=== PATIENT | female | born 1980 | race American Indian/Alaskan Native ===

== ENCOUNTER 2019-04-22 19:33 | Inpatient (IN) | payer OTHER, SELFPAY ==
[2019-04-22] MEDS ORDERED: SODIUM CHLORIDE 0.9% 1000 ML 1,000 ML IV ONE ×2 (20:29)
[2019-04-22] MEDS ORDERED: SODIUM CHLORIDE 0.9% 1000 ML 2,000 ML ONE (20:30)
--- NOTE | 2019-04-22 20:41 | Emergency Department Report ---
HPI - General Chief Complaint: Abdominal Pain Time Seen by Provider: 04/22/19 20:27 - HPI HPI: Room 1 The patient is a 39-year-old female presented with a chief complaint of abdominal pain. The patient suggested additional cramping in the right lower q uadrant and thought it was just her cycle, and on. Patient states this morning at 11:00 by lower quadrant pain became severe causing her to double over when standing. Patient states the pain then spread to bilateral lower quadrant and suprapubic region. Patient denies vaginal bleeding or vaginal discharge. Patient denies burning with urination but states whenever she urinates she feels as though she is on push something out and this causes pain in the abdomen. Patient denies hematuria. Patient denies history of fever. Patient states she use vneb-hci-apcrmal pain medication but has not helped. The patient's LMP was 03/29/2019 she states this is slightly later than normal Location: [See above] Duration: [See above] Quality: [See above] Severity: [See above] Timing: [See above] Context: [See above] Modifying factors: [See above] Associated signs and symptoms: [see above] ED Past Medical Hx - Past Medical History Previous Medical History?: No - Surgical History Past Surgical History?: Yes Additional Surgical History: with tubal ligation - Family History Family history: no significant - Social History Smoking Status: Never Smoker Substance Use Type: None (denies illicit drug use), Alcohol (occasional) - Medications Home Medications: Home Medications Medication Instructions Recorded Confirmed Last Taken Type metroNIDAZOLE [Flagyl] 500 mg PO BID #14 tablet 05/04/13 Unknown Rx metroNIDAZOLE [Flagyl] 500 mg PO BID #14 tablet 09/29/13 Unknown Rx ED Review of Systems ROS: Stated complaint: SYNCOPE/ABD/VAGINAL PAIN Other details as noted in HPI Constitutional: denies: fever Eyes: denies: eye pain ENT: denies: throat pain Respiratory: no symptoms reported Cardiovascular: chest pain Endocrine: no symptoms reported Gastrointestinal: abdominal pain. denies: nausea, vomiting, diarrhea Genitourinary: abnormal menses. denies: dysuria, hematuria, discharge Musculoskeletal: denies: back pain Neurological: denies: headache Physical Exam - Physical Exam Vital Signs: Vital Signs 04/22/19 20:23 Temperature 97.6 F Pulse Rate 83 Respiratory 24 Rate Blood Pressure 87/57 O2 Sat by Pulse 100 Oximetry Physical Exam: GENERAL: The patient is well-developed well-nourished female lying on stretcher not appearing to be in acute distress. [] HEENT: Normocephalic. Atraumatic. Extraocular motions are intact. Patient has moist mucous membranes. NECK: Supple. Trachea midline CHEST/LUNGS: Clear to auscultation. There is no respiratory distress noted. HEART/CARDIOVASCULAR: Regular. There is no tachycardia. There is no gallop rub or murmur. ABDOMEN: Abdomen is soft, with diffuse tenderness to palpation. Patient has normal bowel sounds. There is no abdominal distention. SKIN: There is no rash. There is no edema. There is no diaphoresis. NEURO: The patient is awake, alert, and oriented. The patient is cooperative. The patient has normal speech MUSCULOSKELETAL: There is no evidence of acute injury. Pelvic: PT REFUSED ED Course Vital Signs 04/22/19 20:23 Temperature 97.6 F Pulse Rate 83 Respiratory 24 Rate Blood Pressure 87/57 O2 Sat by Pulse 100 Oximetry - Consultations Consultation #1: 04/23/19 01:13 OB paged 04/23/19 01:18 Case d/w Dr Robby Doll. Will admit ED Medical Decision Making - Lab Data Result diagrams: 04/22/19 20:42 04/22/19 20:42 - EKG Data -: EKG Interpreted by Ri EKG shows normal: sinus rhythm Rate: normal - EKG Data When compared to previous EKG there are: previous EKG unavailable Interpretation: other (no ischemic changes seen) - Radiology Data Radiology results: report reviewed (CT abd/pel, Pelvic u/s), image reviewed (CT abd/pel, Pelvic u/s) [facility] [address] [place] [address] Ultrasound Report Signed Patient: DESTINY BLANTON MR#: [id number] : 1980 Acct:[id number] Age/Sex: 39 / F ADM Date: 04/22/19 Loc: ED Attending Dr: Ordering Physician: YULISSA DIXON MD Date of Service: 04/22/19 Procedure(s): US transvaginal Accession Number(s): [id number] cc: YULISSA DIXON MD ULTRASOUND PELVIS INDICATION / CLINICAL INFORMATION: pelvic pain, leukocytosis. TECHNIQUE: Transabdominal and Transvaginal. Duplex Color Doppler used: Yes. COMPARISON: CT dated 04/22/19 FINDINGS: UTERUS: Present. - Appearance (if present): No significant abnormality. - Size in cm (if present): 9.0 x 4.7 x 5.0. - Endometrial Complex (if present): No significant abnormality.. Thickness in cm (if measured) = 0.7 - Mass lesions: Small 1.7 cm fibroid in the uterine fundus. - Additional findings: None. RIGHT ADNEXA: Complex right adnexal collection. Right ovary not definitely visualized. Normal color Doppler blood flow. LEFT ADNEXA: No significant ovarian cyst or mass. Normal color Doppler blood flow. URINARY BLADDER: No significant abnormality. FREE FLUID: Moderate to large amount of complex, echogenic fluid in the right adnexa and cul-de-sac of the pelvis corresponding to the CT findings. ADDITIONAL FINDINGS: None. IMPRESSION: 1. Moderate to large amount of complex fluid in the right adnexa and cul-de-sac corresponding to CT findings. This may represent hemorrhagic fluid. Ruptured hemorrhagic ovarian cyst would be one diagnostic consideration. Signer Name: Mine Collins MD Signed: 04/23/2019 1:00 AM Workstation Name: [id number] Transcribed By: DT Dictated By: Doroteo Collins MD Electronically Authenticated By: Doroteo Collins MD Signed Date/Time: 04/23/19 0100 DD/ 0056 TD/TT: [facility] [address] [place] [address] Cat Scan Report Signed Patient: DESTINY BLANTON MR#: [id number] : 1980 Acct:[id number] Age/Sex: 39 / F ADM Date: 04/22/19 Loc: ED Attending Dr: Ordering Physician: YULISSA DIXON MD Date of Service: 04/22/19 Procedure(s): CT abdomen pelvis w con Accession Number(s): [id number] cc: YULISSA DIXON MD CT ABDOMEN AND PELVIS WITH CONTRAST INDICATION / CLINICAL INFORMATION: lower abdominal pain, leukocytosis. Serum test is negative. TECHNIQUE: Axial CT images were obtained through the abdomen and pelvis after 100 mL Omnipaque [address] scans at this location are performed using CT dose reduction for ALARA by means of automated exposure control. COMPARISON: None available. FINDINGS: LOWER CHEST: No significant abnormality. LIVER: No significant abnormality. GALLBLADDER: Small layering gallstones without gallbladder inflammation. BILE DUCTS: No significant abnormality. PANCREAS: No significant abnormality. SPLEEN: No significant abnormality. ADRENALS: No significant abnormality. RIGHT KIDNEY and URETER: No significant abnormality. LEFT KIDNEY and URETER: No significant abnormality. STOMACH and SMALL BOWEL: There are fluid-filled, nondilated loops of small bowel. COLON: There is fluid throughout the colon without obstruction. APPENDIX: No significant abnormality. PERITONEUM: There is a moderate amount of hemorrhagic fluid within the pelvis primarily in the cul-de-sac. There is a small to moderate amount of fluid in the upper abdomen around the liver and spleen. No free air. No fluid collection. LYMPH NODES: No significant adenopathy. AORTA and ARTERIES: No significant abnormality. IVC and VEINS: No significant abnormality. URINARY BLADDER: No significant abnormality. REPRODUCTIVE ORGANS: Uterus shows no significant abnormality. Adnexa are not well seen given the moderate amount of hemorrhagic fluid in the pelvis. ADDITIONAL FINDINGS: None. SKELETAL SYSTEM: No significant abnormality. IMPRESSION: 1. Moderate amount of hemorrhagic fluid in the pelvis with fluid extending into the upper abdomen. Given that the serum test is negative, ruptured ectopic is unlikely. A ruptured hemorrhagic ovarian cyst could have this appearance. Gynecologic consultation may be helpful. 2. Normal appendix. COMMUNICATION: Time of Communication (COTTON ACREAGE MEASURER/CDT): 10:18 PM Licensed Practitioner Receiving Report: Dr. Dixon in the ED Signer Name: Mine Collins MD Signed: 04/22/2019 11:21 PM Workstation Name: [id number] Transcribed By: DT Dictated By: Doroteo Collins MD Electronically Authenticated By: Doroteo Collins MD Signed Date/Time: 04/22/19 4601 DD/ 2310 TD/TT: - Differential Diagnosis ectopic , appendicitis, cystitis, tubo-ovarian abscess Critical care attestation.: If time is entered above; I have spent that time in minutes in the direct care of this critically ill patient, excluding procedure time. ED Disposition Clinical Impression: Acute abdominal pain, Pelvic fluid collection, Leukocytosis, Hypotension Disposition: - OP ADMIT IP TO THIS HOSP Is pt being admited?: Yes Does the pt Need Aspirin: No Condition: Serious Instructions: Abdominal Pain (ED) Referrals: PRIMARY CARE, [Primary Care Provider] - 3-5 Days Time of Disposition: 01:19 (Dr Robby Doll notified)
[2019-04-22] MEDS: ONDANSETRON 4 MG/2 ML INJ IV ONE ×2 (20:46→20:54)
[2019-04-22] MEDS: fentaNYL 100 MCG/2 ML INJ IV ONE ×2 (20:46→20:53)
[2019-04-22 21:19] LABS: Hemoglobin 10.7 gm/dl (10.1-14.3); Mean Corpuscular HGB Conc 32 % (30-34); Mean Corpuscular Volume 85 fl (79-97); Platelet Count 220 K/mm3 (140-440); Red Cell Distribution Width 13.7 % (13.2-15.2)
[2019-04-22 21:23] LABS: INR 1.2 (0.87-1.13)
[2019-04-22 21:24] LABS: Partial Thromboplastin Time 22.9 Sec. (24.2-36.6)
[2019-04-22] MEDS ORDERED: PIPERACIL/TAZOBACTA 4.5/NS 100 4.5 GM/100 ML VIAL IV ONE (21:27)
[2019-04-22 21:58] LABS: Alanine Aminotransferase 9 units/L (7-56); Albumin 3.2 g/dL (3.9-5); BUN/Creatinine Ratio 11; Blood Urea Nitrogen 8 mg/dL (7-17); Calcium 7.5 mg/dL (8.4-10.2); Hemolysis Index 37
[2019-04-22 22:05] LABS: Creatine Kinase MB < 1.0 ng/mL (0.0-4.0)
[2019-04-22 22:10] LABS: HCG,Quantitative < 2 mIU/mL (0-4)
--- NOTE | 2019-04-22 23:26 | Cat Scan Report ---
CT ABDOMEN AND PELVIS WITH CONTRAST INDICATION / CLINICAL INFORMATION: lower abdominal pain, leukocytosis. Serum test is negative. TECHNIQUE: Axial CT images were obtained through the abdomen and pelvis after 100 mL Omnipaque [address] scans at this location are performed using CT dose reduction for ALARA by means of automated exposure control. COMPARISON: None available. FINDINGS: LOWER CHEST: No significant abnormality. LIVER: No significant abnormality. GALLBLADDER: Small layering gallstones without gallbladder inflammation. BILE DUCTS: No significant abnormality. PANCREAS: No significant abnormality. SPLEEN: No significant abnormality. ADRENALS: No significant abnormality. RIGHT KIDNEY and URETER: No significant abnormality. LEFT KIDNEY and URETER: No significant abnormality. STOMACH and SMALL BOWEL: There are fluid-filled, nondilated loops of small bowel. COLON: There is fluid throughout the colon without obstruction. APPENDIX: No significant abnormality. PERITONEUM: There is a moderate amount of hemorrhagic fluid within the pelvis primarily in the cul-de -sac. There is a small to moderate amount of fluid in the upper abdomen around the liver and spleen. No free air. No fluid collection. LYMPH NODES: No significant adenopathy. AORTA and ARTERIES: No significant abnormality. IVC and VEINS: No significant abnormality. URINARY BLADDER: No significant abnormality. REPRODUCTIVE ORGANS: Uterus shows no significant abnormality. Adnexa are not well seen given the mode rate amount of hemorrhagic fluid in the pelvis. ADDITIONAL FINDINGS: None. SKELETAL SYSTEM: No significant abnormality. IMPRESSION: 1. Moderate amount of hemorrhagic fluid in the pelvis with fluid extending into the upper abdomen. Gi do that the serum test is negative, ruptured ectopic is unlikely. A ruptured hem orrhagic ovarian cyst could have this appearance. Gynecologic consultation may be helpful. 2. Normal appendix. COMMUNICATION: Time of Communication (SPECIAL FORCES COMMUNICATIONS SERGEANT/CDT): 10:18 PM Licensed Practitioner Receiving Report: Dr. Ozuna in the ED Signer Name: Mine Collins MD Signed: 04/22/2019 11:21 PM Workstation Name: [email or web address]
[2019-04-22 23:28] LABS: Basophils % (Manual) 0 % (0.0-1.8); Eosinophils % (Manual) 0 % (0.0-4.3); Total Cells Counted 100
[2019-04-22 23:29] LABS: Platelet Estimate Consistent w Auto; RBC Morphology Normal
[2019-04-22 23:34] LABS: Bilirubin,Urine NEG (Negative); Blood,Urine NEG (Negative); Color,Urine Straw (Yellow); Mucus,Urine FEW /HPF; Protein,Urine <15 mg/dL mg/dL (Negative); RBC,Urine < 1.0 /HPF (0.0-6.0); Urobilinogen,Urine < 2.0 mg/dL (<2.0); WBC,Urine < 1.0 /HPF (0.0-6.0)
--- NOTE | 2019-04-23 01:04 | Ultrasound Report ---
ULTRASOUND PELVIS INDICATION / CLINICAL INFORMATION: pelvic pain, leukocytosis. TECHNIQUE: Transabdominal and Transvaginal. Duplex Color Doppler used: Yes. COMPARISON: CT dated 04/22/19 FINDINGS: UTERUS: Present. - Appearance (if present): No significant abnormality. - Size in cm (if present): 9.0 x 4.7 x 5.0. - Endometrial Complex (if present): No significant abnormality.. Thickness in cm (if measured) = 0.7 - Mass lesions: Small 1.7 cm fibroid in the uterine fundus. - Additional findings: None. RIGHT ADNEXA: Complex right adnexal collection. Right ovary not definitely visualized. Normal color D oppler blood flow. LEFT ADNEXA: No significant ovarian cyst or mass. Normal color Doppler blood flow. URINARY BLADDER: No significant abnormality. FREE FLUID: Moderate to large amount of complex, echogenic fluid in the right adnexa and cul-de-sac o f the pelvis corresponding to the CT findings. ADDITIONAL FINDINGS: None. IMPRESSION: 1. Moderate to large amount of complex fluid in the right adnexa and cul-de-sac corresponding to CT f indings. This may represent hemorrhagic fluid. Ruptured hemorrhagic ovarian cyst would be one diagnos tic consideration. Signer Name: Mine Collins MD Signed: 04/23/2019 1:00 AM Workstation Name: [email or web address]
[2019-04-23] MEDS ORDERED: LACTATED RINGERS 1,000 ML ONE ×2 (09:00→13:09)
--- NOTE | 2019-04-23 09:07 | Short Stay Summary ---
Short Stay Documentation Date of service: 04/23/19 Narrative H&P: Pt is a 39yo BF LMP 03/29/19 presents to [facility] ER complaining of abdominal pains. The patient suggested additional cramping in the right lower quadrant and thought it was just her cycle, but the lower quadrant pain became severe causing her to double over when standing. She states the pain then spread to bilateral lower quadrant and suprapubic region. She denies vaginal bleeding, vaginal discharge, burning with urination but states whenever she urinates she feels as though she wants to push something out, and this causes pain in the abdomen. She denies hematuria, history of fever or chills, and states [id number] pain medication but has not helped. A CT Scan showed a moderate amount of fluid collection in the abdomen - confirmed with pelvic u/s, and was suggestive of a ruptured hemorrhagic ovarian cyst. She will therefore be admitted for a Laparoscopic ovarian cystectomy. - History Principal diagnosis: 1. Abdominal pain 2. Ruptured ovarian cyst H&P: obtained from office Past Medical History: No medical history Past Surgical History: , Other (BTL) Social history: no significant social history, single - Allergies and Medications Current Medications: Allergies No Known Allergies Allergy (Verified 05/04/13 02:47) Home Medications Medication Instructions Recorded Confirmed Last Taken Type metroNIDAZOLE [Flagyl] 500 mg PO BID #14 tablet 05/04/13 Unknown Rx metroNIDAZOLE [Flagyl] 500 mg PO BID #14 tablet 09/29/13 Unknown Rx - Physical exam General appearance: mild distress Integumentary: no rash HEENT: Atraumatic Lungs: Clear to auscultation Breasts: deferred Heart: Regular rate Gastrointestinal: tenderness Female Genitourinary: deferred Rectal Exam: deferred Extremities: no ischemia, No edema Neurological: Normal speech - Brief post op/procedure progress note Date of procedure: 04/23/19 Pre-op diagnosis: 1. Abdominal pain 2. Ruptured right ovarian cyst 3. Hematoperitoneum Post-op diagnosis: same Procedure: 1. Laproscopic right ovarian cystectomy 2. Evacuation of hematoperitoneum Anesthesia: GETA Findings: Approximately 700mls of hematoperitoneum obscuring the pelvic organs. A normal uterus with normal tubes showing evidence of previous tubal ligation bilaterally. A normal left ovary and a large cystic bleeding right ovarian cyst. A normal appendix. Surgeon: VIKTORIYA BARRAGAN Estimated blood loss: other (700mls of hematoperitoneum) Pathology: list (right ovarian cyst) Specimen disposition: to lab Condition: stable - Hospital course Hospital course: Unremarkable. - Disposition Condition at discharge: Good Disposition: DC-01 TO HOME OR SELFCARE - Discharge Diagnoses (1) Ovarian cyst rupture Status: Resolved (2) Hemoperitoneum Status: Resolved Short Stay Discharge Plan Activity: no restrictions Diet: regular Wound: open to air, keep clean and dry Follow up with: PRIMARY CAREMD [Primary Care Provider] - 3-5 Days VIKTORIYA BARRAGAN MD [Staff Physician] - 7 Days Forms: Work/School Excuse Out Patient Prescriptions: Ferrous Sulfate [Feosol 325 MG tab] 325 mg PO BID #60 tablet HYDROcodone/APAP 5-325 [[place] 5-325 mg TAB] 1 each PO Q4H PRN #20 tablet PRN Reason: Pain, Moderate (4-6)
[2019-04-23] MEDS ORDERED: LACTATED RINGERS 1,000 ML IV SCH (09:30)
[2019-04-23] MEDS ORDERED: ceFAZolin/Water 2 GM/20 ML 2 GM/20 ML SYRINGE IV NR (10:00)
--- NOTE | 2019-04-23 10:18 | Anesthesia Consultation ---
Anesthesia Consult and Med Hx Date of service: 04/23/19 - Airway Anesthetic Teeth Evaluation: Good ROM Head & Neck: Adequate Mental/Hyoid Distance: Adequate Mallampati Class: Class II Intubation Access Assessment: Probably Good - Pulmonary Exam CTA: Yes - Cardiac Exam Cardiac Exam: RRR - Pre-Operative Health Status ASA Pre-Surgery Classification: ASA1 Proposed Anesthetic Plan: General - Pulmonary Hx Smoking: No Hx Respiratory Symptoms: Yes (URI 2 wks ago; resoolved) - Cardiovascular System Hx Hypertension: No Hx Heart Attack/AMI: No - Central Nervous System Hx Seizures: No CVA: No - Gastrointestinal Hx Gastroesophageal Reflux Disease: No - Endocrine Hx Renal Disease: No Hx Liver Disease: No Hx Insulin Dependent Diabetes: No Hx Non-Insulin Dependent Diabetes: No Hx Thyroid Disease: No - Hematic Hx Anemia: Yes - Other Systems Hx Obesity: No - Additional Comments Anesthesia Medical History Comments: No prior GA. No FHx anesthetic complications.
--- NOTE | 2019-04-23 10:18 | Anesthesia Day of Surgery ---
Anesthesia Day of Surgery - Day of Surgery Patient Examined: Yes Patient H&P Reviewed: Yes Patient is NPO: Yes
[2019-04-23] MEDS ORDERED: SCOPOLAMINE TRANSDERMAL PATCH 72 HR TD NR (10:30)
[2019-04-23] MEDS ORDERED: HYDROmorphone 1 MG/1 ML INJ IV PRN (10:30)
[2019-04-23] MEDS ORDERED: MIDAZOLAM 2 MG/2 ML INJ IV NR (11:00)
[2019-04-23] MEDS ORDERED: KETOROLAC 30 MG/1 ML INJ ONE ×2 (11:00→13:00)
[2019-04-23] MEDS ORDERED: ROCURONIUM 50 MG/5 ML INJ IV ONE (11:18)
[2019-04-23] MEDS ORDERED: MIDAZOLAM 2 MG/2 ML INJ ONE (11:18)
[2019-04-23] MEDS ORDERED: LIDOCAINE MPF (2%) 20 MG/1 ML VIAL 5 ML ONE (11:18)
[2019-04-23] MEDS ORDERED: fentaNYL 100 MCG/2 ML INJ ONE ×2 (11:19)
[2019-04-23] MEDS ORDERED: PROPOFOL 200 MG/20 ML VIAL IV ONE (11:19)
[2019-04-23] MEDS ORDERED: BUPIVACAINE/PF (0.5%) 5 MG/1 ML 30 ML VIAL INFILTRATI ONE ×2 (11:32→13:02)
[2019-04-23] MEDS ORDERED: ONDANSETRON 4 MG/2 ML INJ ONE (12:09)
[2019-04-23] MEDS ORDERED: dexAMETHasone 20 MG/5 ML VIAL ONE (12:09)
[2019-04-23] MEDS ORDERED: METOCLOPRAMIDE 10 MG/2 ML INJ ONE (12:09)
[2019-04-23] MEDS ORDERED: SODIUM CHLORIDE 0.9% IRR 1,000 ML BOTTLE IR ONE (12:13)
[2019-04-23] MEDS ORDERED: SODIUM CHLORIDE 0.9% IRRIG SOLN 2000 ML IR ONE (12:13)
[2019-04-23] MEDS ORDERED: NEOSTIGMINE 10MG/10 ML INJ MDV ONE (12:59)
[2019-04-23] MEDS ORDERED: GLYCOPYRROLATE 0.4 MG/2 ML INJ ONE (13:00)
--- NOTE | 2019-04-23 13:04 | Operative Report ---
Operative Report Operative Report: Date of procedure: 04/23/2019 Pre-operative diagnosis: 1. Abdominal pain 2. Ruptured right ovarian cyst 3. Hematoperitoneum Post-operative diagnosis: Same Procedure name(s): 1. Laparoscopic right ovarian cystectomy 2. Evacuation of hematoperitoneum Surgeon: Dr. Genaro Doll Content Checker: None Anesthesia: Gen. endotracheal intubation EBL: 700mls of hematoperitoneum Findings: Approximately 700mls of hematoperitoneum initially obscuring the pelvic organs. A normal uterus with normal tubes showing evidence of previous tubal ligation bilaterally. A normal left ovary and a large cystic bleeding right ovarian cyst. Normal appendix. Procedure: After the patient was correctly identified, she was prepped and draped in the usual sterile fashion and placed in the dorsolithotomy position. Next the bladder was emptied using a Castillo catheter, and the speculum was placed in the vaginal vault. The anterior lip of the cervix was grasped using single- tooth tenaculum, and the uterine manipulator was then placed. The tenaculum and speculum were then removed. Attention was then turned to the abdomen where a periumbilical incision was made using the skin knife, and the Optiview trocar was inserted under direct visualization. Immediately there was noted to be a large amount of blood in the pelvis, obscuring the pelvic organs. After adequate amount of abdominal insufflation, a suprapubic incision was made through which a 5mm trochar and suction phd internship was placed to remove approximately 700mls of blood and blood clots. Next visualization of the pelvic organs found the uterus to be normal, with a normal left ovary and a large cystic bleeding right ovarian cyst. A right lateral incision was made through which a 5 mm trochar was placed in order to aid in manipulation of the pelvic organs. The right ovarian cyst was excised using the tripolar cautery, and excellent hemostasis was achieved. The cyst was removed and sent to pathology. Copious amounts of irrigation was then performed using 3 liters of saline, and the Tisseel Sealant was sprayed across this ovarian cystectomy site. At this point the procedure was considered complete. All instruments were removed from the abdomen. The abdomen was deflated, and a periumbilical incision was closed using 0 Vicryl suture in a uqmabg-[id number]-acqua configuration of the fascia followed by 4 Monocryl suture in a sub-cuticular fashion on the skin. The suprapubic and right lateral incisions were closed in similar fashion. Each incision was infiltrated using 0.5% Marcaine Solution. The uterine manipulator was removed. The patient tolerated the procedure well and was transferred to recovery in stable condition.
[2019-04-23] MEDS ORDERED: ONDANSETRON 4 MG/2 ML INJ IV PRN (14:03)
[2019-04-23] MEDS ORDERED: MAGNESIUM HYDROXIDE (MOM) ORAL LIQD UDC PO PRN (14:03)
[2019-04-23] MEDS ORDERED: HYDROcodone/ACETAMINOPHEN 5-325 MG TAB PO PRN (14:03)
[2019-04-23] MEDS ORDERED: oxyCODONE /ACETAMINOPHEN 5-325MG TAB PO PRN (14:03)
[2019-04-23] MEDS ORDERED: ACETAMINOPHEN 325 MG TAB PO PRN (14:03)
[2019-04-23 14:51] LABS: Hematocrit 28.6 % (30.3-42.9); Hemoglobin 9.4 gm/dl (10.1-14.3)
[2019-04-23] MEDS: D5W/LACTATED RINGERS 1,000 ML IV SCH (18:02)
[2019-04-23] MEDS: ceFAZolin/NS 1 GM/50 ML 1 GM/50 ML BAG IV SCH (22:30)
[2019-04-23] MEDS: KETOROLAC 30 MG/1 ML INJ IV SCH (23:44)
[2019-04-24] MEDS: D5W/LACTATED RINGERS 1,000 ML IV SCH (01:55)
[2019-04-24 06:28] LABS: Hematocrit 22.5 % (30.3-42.9); Hemoglobin 7.6 gm/dl (10.1-14.3); Mean Corpuscular HGB Conc 34 % (30-34); Mean Corpuscular Volume 83 fl (79-97); Platelet Count 172 K/mm3 (140-440); Red Blood Count 2.71 M/mm3 (3.65-5.03); Red Cell Distribution Width 13.7 % (13.2-15.2)
[2019-04-24] MEDS: ceFAZolin/NS 1 GM/50 ML 1 GM/50 ML BAG IV SCH (08:15)
[2019-04-24] MEDS: KETOROLAC 30 MG/1 ML INJ IV SCH ×2 (09:05→15:05)
--- NOTE | 2019-04-24 13:23 | Progress Note ---
Assessment and Plan - Patient Problems (1) Ovarian cyst rupture Onset Date: 04/24/19 Current Visit: Yes Status: Resolved Plan to address problem: A: s/p Laparoscopic right ovarian cystectomy - POD #1 Doing well Asymptomatic anemia - stable P: May go home today. (2) Hemoperitoneum Onset Date: 04/24/19 Current Visit: Yes Status: Resolved (3) Acute blood loss anemia Onset Date: 04/24/19 Current Visit: Yes Status: Resolved Subjective - Subjective Date of service: 04/24/19 Principal diagnosis: s/p Laparoscopic right ovarian cystectomy Interval history: Pt is feeling well without complaints. She is tolerating a reg diet without nausea or vomiting, ambulating and voiding without difficulty. She denies dizziness or SOB, and wants to go home. Patient reports: appetite normal, voiding normally, pain well controlled, flatus, ambulating normally, no dizzy ambulation, no nauseated Objective - Vital Signs Latest vital signs: Vital Signs Temp Pulse Resp BP BP Pulse Ox 04/24/19 09:20 98.6 F 106 H 20 111/74 04/24/19 04:03 98.2 F 90 20 112/67 95 04/23/19 23:20 98.6 F 72 20 104/53 100 04/23/19 19:23 98.8 F 75 20 120/70 99 04/23/19 18:03 20 04/23/19 16:17 98.4 F 70 18 117/62 99 04/23/19 14:50 99.0 F 70 19 121/74 97 04/23/19 14:45 99 F 70 18 121/74 97 04/23/19 14:20 97.7 F 70 20 114/73 96 04/23/19 14:05 69 20 118/76 98 04/23/19 13:50 80 20 121/73 98 04/23/19 13:35 68 18 123/73 100 04/23/19 13:30 69 20 115/71 100 04/23/19 13:25 71 20 118/72 99 Intake and Output 04/23/19 04/24/19 04/24/19 22:59 06:59 14:59 Intake Total 360 1225.417 170 Output Total 300 400 Balance 60 825.417 170 Intake: IV 985.417 50 ANCEF/NS 1 GM/50 ML 1 gm 50 In 50 ml @ 100 mls/hr IV Q8H RICARDO Rx#:[id number] D5lr 1,000 ml @ 125 mls/ 985.417 hr IV DIRECT RICARDO Rx#: [id number] Oral 360 240 120 Output: Urine 300 400 Void 300 400 Other: Total, Intake Amount 240 240 120 Total, Output Amount 300 400 Voiding Method Toilet Toilet # Voids Void 0 1 - Exam Breasts: Present: deferred Abdomen: Present: normal appearance, soft Extremities: Present: normal Incision: Present: normal, dry, intact - Labs Labs: Abnormal lab results 04/23/19 04/24/19 Range/Units 14:26 05:47 WBC 12.8 H (4.5-11.0) K/mm3 RBC 2.71 L (3.65-5.03) M/mm3 Hgb 9.4 L 7.6 L (10.1-14.3) gm/dl Hct 28.6 L 22.5 L D (30.3-42.9) %
[2019-04-24 15:18] VITALS: BP 126/67
== END 2019-04-24 16:30 | disposition home or self-care (01) | DRG 742 ==
LOC: ED 19:33 → LD 04-23 01:20 → OB 04-23 02:15
PROVIDERS: ADMIT Obstetrics & Gynecology; ATTEND Obstetrics & Gynecology
PROC: 0UB04ZZ Excision of Right Ovary, Percutaneous Endoscopic Approach (ICD-10-PCS; principal; 2019-04-23)
PROC: 0WCG4ZZ Extirpation of Matter from Peritoneal Cavity, Percutaneous Endoscopic Approach (ICD-10-PCS; 2019-04-23)
DX: N83.201 Unspecified ovarian cyst, right side (principal); K66.1 Hemoperitoneum; D62 Acute posthemorrhagic anemia; D72.829 Elevated white blood cell count, unspecified; I95.9 Hypotension, unspecified; Z98.51 Tubal ligation status; Z72.89 Other problems related to lifestyle; Z79.899 Other long term (current) drug therapy
CPT/HCPCS: 36415; 74177; 76830; 80053; 81001; 82140; 82550; 82553; 83690; 84439; 84443; 84484; 84702; 85007; 85014; 85018; 85025; 85027; 85610; 85730; 86850; 86900; 86901; 87040; 87086; 88305; 93005; 93010; 93975; 96361; 96365; G0378; A4217; C9250; J0690; J1100; J1885; J2250; J2405; J2543; J2704; J2710; J2765; J3010; J7030; J7120; J7121; Q9967

== ENCOUNTER 2019-10-28 13:01 | Emergency (ER) | payer SELFPAY ==
[2019-10-28 13:09] VITALS: BP 126/81
[2019-10-28 14:01] LABS: Basophils # (Auto) 0.1 K/mm3 (0.0-0.1); Basophils % (Auto) 0.6 % (0.0-1.8); Eosinophils # (Auto) 0.1 K/mm3 (0.0-0.4); Eosinophils % (Auto) 0.8 % (0.0-4.3); Hematocrit 37.3 % (30.3-42.9); Hemoglobin 12.1 gm/dl (10.1-14.3); Lymphocytes # (Auto) 1.7 K/mm3 (1.2-5.4); Lymphocytes % (Auto) 16.8 % (13.4-35.0); Mean Corpuscular HGB Conc 32 % (30-34); Mean Corpuscular Volume 78 fl (79-97); Monocytes # (Auto) 0.7 K/mm3 (0.0-0.8); Monocytes % (Auto) 6.5 % (0.0-7.3); Platelet Count 305 K/mm3 (140-440); Red Blood Count 4.77 M/mm3 (3.65-5.03)
[2019-10-28 14:22] LABS: Alanine Aminotransferase 11 units/L (7-56); Albumin 4.1 g/dL (3.9-5); BUN/Creatinine Ratio 9; Blood Urea Nitrogen 6 mg/dL (7-17); Calcium 8.9 mg/dL (8.4-10.2); Hemolysis Index 7
[2019-10-28 14:49] LABS: Bacteria,Urine 4+ /HPF (Negative); Bilirubin,Urine NEG (Negative); Blood,Urine NEG (Negative); Color,Urine Yellow (Yellow); Mucus,Urine 2+ /HPF; Protein,Urine <15 mg/dL mg/dL (Negative); Urobilinogen,Urine < 2.0 mg/dL (<2.0)
--- NOTE | 2019-10-28 15:27 | Ultrasound Report ---
Pelvic Ultrasound HISTORY: suprapubic, right lower quadrant pain, hx of cysts. TECHNIQUE: Grayscale and color imaging performed. COMPARISON: Pelvic ultrasound from 04/23/2019 FINDINGS: Uterus measures 8.4 x 4.1 x 5.1 cm with endometrial complex measuring 6 mm. There is a smal l mass in the left paracentral uterine body measuring 1.5 cm likely representing a fibroid. There is also a tiny cystic structure measuring 6 mm in the right uterine body. Small bilateral ovarian cysts are present with otherwise unremarkable appearance of the ovaries. Right-sided cysts have a mildly co mplex appearance and measure 1.6 cm in maximal dimension. The left-sided ovarian cysts have a simple or appearance. Trace pelvic free fluid is present. IMPRESSION: 1. Bilateral ovarian cysts, slightly more complex on the right but likely functional. No obvious stefano d soft tissue component. 2. Small uterine fibroid. 3. Trace simple pelvic free fluid. Signer Name: Hernesto Valderrama MD Signed: 10/28/2019 3:22 PM Workstation Name: [id number]
--- NOTE | 2019-10-28 15:32 | Emergency Department Report ---
ED Abdominal Pain HPI - General Chief Complaint: Abdominal Pain Stated Complaint: LOWER ABD PAIN Time Seen by Provider: 10/28/19 13:53 Source: patient Mode of arrival: Ambulatory Limitations: No Limitations - History of Present Illness Initial Comments: Patient is a 39-year-old female presents emergency room with complaints of lower abdominal pain that began today. She states that she was at work pushing a vanity and felt like she pulled a muscle and then began having pain in her lower abdomen and lower back. She states the pain feels like a pressure. She denies any fever, rectal pain, nausea, vomiting, diarrhea, melena, hematochezia. She does not report any vaginal discharge or irritation. She states that she has a past medical history of a ruptured ovarian cyst and she states that the pain feels similar to when she had the cyst previously. She denies any allergies to medications. She states her last menstrual cycle was September. - Related Data Previous Rx's Medication Instructions Recorded Last Taken Type metroNIDAZOLE [Flagyl] 500 mg PO BID #14 tablet 05/04/13 Unknown Rx metroNIDAZOLE [Flagyl] 500 mg PO BID #14 tablet 09/29/13 Unknown Rx Ferrous Sulfate [Feosol 325 MG tab] 325 mg PO BID #60 tablet 04/24/19 Unknown Rx HYDROcodone/APAP 5-325 [Saunemin 1 each PO Q4H PRN #20 tablet 04/24/19 Unknown Rx 5-325 mg TAB] Naproxen [Naprosyn TAB] 500 mg PO BID PRN #14 tablet 10/28/19 Unknown Rx Allergies Allergy/AdvReac Type Severity Reaction Status Date / Time No Known Allergies Allergy Verified 05/04/13 02:47 ED Review of Systems ROS: Stated complaint: LOWER ABD PAIN Other details as noted in HPI Comment: All other systems reviewed and negative ED Past Medical Hx - Past Medical History Hx Hypertension: No Hx Heart Attack/AMI: No Hx Congestive Heart Failure: No Hx Diabetes: No Hx Liver Disease: No Hx Renal Disease: No Hx Sickle Cell Disease: Yes (sickle cell trait) Hx Seizures: No Hx Asthma: No Hx COPD: No Hx HIV: No - Surgical History Additional Surgical History: with tubal ligation - Social History Smoking Status: Never Smoker - Medications Home Medications: Home Medications Medication Instructions Recorded Confirmed Last Taken Type metroNIDAZOLE [Flagyl] 500 mg PO BID #14 tablet 05/04/13 Unknown Rx metroNIDAZOLE [Flagyl] 500 mg PO BID #14 tablet 09/29/13 Unknown Rx Ferrous Sulfate [Feosol 325 MG tab] 325 mg PO BID #60 tablet 04/24/19 Unknown Rx HYDROcodone/APAP 5-325 [Saunemin 1 each PO Q4H PRN #20 tablet 04/24/19 Unknown Rx 5-325 mg TAB] Naproxen [Naprosyn TAB] 500 mg PO BID PRN #14 tablet 10/28/19 Unknown Rx ED Physical Exam - General Limitations: No Limitations General appearance: alert, in no apparent distress - Head Head exam: Present: atraumatic, normocephalic - Eye Eye exam: Present: normal appearance - ENT ENT exam: Present: mucous membranes moist - Respiratory Respiratory exam: Present: normal lung sounds bilaterally. Absent: respiratory distress, wheezes, rales, rhonchi, stridor, chest wall tenderness, accessory muscle use, decreased breath sounds, prolonged expiratory - Cardiovascular Cardiovascular Exam: Present: regular rate, normal rhythm, normal heart sounds. Absent: systolic murmur, diastolic murmur, rubs, gallop - GI/Abdominal GI/Abdominal exam: Present: soft, tenderness (suprapubic and mild right lower ), normal bowel sounds. Absent: distended, guarding, rebound, rigid - Neurological Exam Neurological exam: Present: alert, oriented X3 - Psychiatric Psychiatric exam: Present: normal affect, normal mood - Skin Skin exam: Present: warm, dry, intact ED Course Vital Signs 10/28/19 13:05 Temperature 98.6 F Pulse Rate 72 Respiratory 18 Rate Blood Pressure 126/81 O2 Sat by Pulse 100 Oximetry ED Medical Decision Making - Lab Data Result diagrams: 10/28/19 13:14 10/28/19 13:14 Lab Results 10/28/19 10/28/19 10/28/19 Range/Units 13:14 13:14 13:14 WBC 10.3 (4.5-11.0) K/mm3 RBC 4.77 (3.65-5.03) M/mm3 Hgb 12.1 (10.1-14.3) gm/dl Hct 37.3 (30.3-42.9) % MCV 78 L (79-97) fl MCH 25 L (28-32) pg MCHC 32 (30-34) % RDW 18.0 H (13.2-15.2) % Plt Count 305 (140-440) K/mm3 Lymph % (Auto) 16.8 (13.4-35.0) % Walker % (Auto) 6.5 (0.0-7.3) % Eos % (Auto) 0.8 (0.0-4.3) % Baso % (Auto) 0.6 (0.0-1.8) % Lymph # 1.7 (1.2-5.4) K/mm3 Walker # 0.7 (0.0-0.8) K/mm3 Eos # 0.1 (0.0-0.4) K/mm3 Baso # 0.1 (0.0-0.1) K/mm3 Seg Neutrophils % 75.3 H (40.0-70.0) % Seg Neutrophils # 7.8 H (1.8-7.7) K/mm3 Sodium 140 (137-145) mmol/L Potassium 3.4 L (3.6-5.0) mmol/L Chloride 104.4 (98-107) mmol/L Carbon Dioxide 26 (22-30) mmol/L Anion Gap 13 mmol/L BUN 6 L (7-17) mg/dL Creatinine 0.7 (0.7-1.2) mg/dL Estimated GFR > 60 ml/min BUN/Creatinine Ratio 9 % Glucose 70 (65-100) mg/dL Calcium 8.9 (8.4-10.2) mg/dL Total Bilirubin 0.20 (0.1-1.2) mg/dL AST 15 (5-40) units/L ALT 11 (7-56) units/L Alkaline Phosphatase 76 (35-129) units/L Total Protein 7.3 (6.3-8.2) g/dL Albumin 4.1 (3.9-5) g/dL Albumin/Globulin Ratio 1.3 % HCG, Quant < 2 (0-4) mIU/mL Urine Color (Yellow) Urine Turbidity (Clear) Urine pH (5.0-7.0) Ur Specific [place] (1.003-1.030) Urine Protein (Negative) mg/dL Urine Glucose (UA) (Negative) mg/dL Urine Ketones (Negative) mg/dL Urine Blood (Negative) Urine Nitrite (Negative) Urine Bilirubin (Negative) Urine Urobilinogen (<2.0) mg/dL Ur Leukocyte Esterase (Negative) Urine WBC (Auto) (0.0-6.0) /HPF Urine RBC (Auto) (0.0-6.0) /HPF U Epithel Cells (Auto) (0-13.0) /HPF Urine Bacteria (Auto) (Negative) /HPF Urine Mucus /HPF 10/28/19 Range/Units 14:06 WBC (4.5-11.0) K/mm3 RBC (3.65-5.03) M/mm3 Hgb (10.1-14.3) gm/dl Hct (30.3-42.9) % MCV (79-97) fl MCH (28-32) pg MCHC (30-34) % RDW (13.2-15.2) % Plt Count (140-440) K/mm3 Lymph % (Auto) (13.4-35.0) % Walker % (Auto) (0.0-7.3) % Eos % (Auto) (0.0-4.3) % Baso % (Auto) (0.0-1.8) % Lymph # (1.2-5.4) K/mm3 Walker # (0.0-0.8) K/mm3 Eos # (0.0-0.4) K/mm3 Baso # (0.0-0.1) K/mm3 Seg Neutrophils % (40.0-70.0) % Seg Neutrophils # (1.8-7.7) K/mm3 Sodium (137-145) mmol/L Potassium (3.6-5.0) mmol/L Chloride (98-107) mmol/L Carbon Dioxide (22-30) mmol/L Anion Gap mmol/L BUN (7-17) mg/dL Creatinine (0.7-1.2) mg/dL Estimated GFR ml/min BUN/Creatinine Ratio % Glucose (65-100) mg/dL Calcium (8.4-10.2) mg/dL Total Bilirubin (0.1-1.2) mg/dL AST (5-40) units/L ALT (7-56) units/L Alkaline Phosphatase (35-129) units/L Total Protein (6.3-8.2) g/dL Albumin (3.9-5) g/dL Albumin/Globulin Ratio % HCG, Quant (0-4) mIU/mL Urine Color Yellow (Yellow) Urine Turbidity Clear (Clear) Urine pH 5.0 (5.0-7.0) Ur Specific [place] 1.014 (1.003-1.030) Urine Protein <15 mg/dl (Negative) mg/dL Urine Glucose (UA) Neg (Negative) mg/dL Urine Ketones Neg (Negative) mg/dL Urine Blood Neg (Negative) Urine Nitrite Neg (Negative) Urine Bilirubin Neg (Negative) Urine Urobilinogen < 2.0 (<2.0) mg/dL Ur Leukocyte Esterase Neg (Negative) Urine WBC (Auto) 5.0 (0.0-6.0) /HPF Urine RBC (Auto) 4.0 (0.0-6.0) /HPF U Epithel Cells (Auto) 2.0 (0-13.0) /HPF Urine Bacteria (Auto) 4+ (Negative) /HPF Urine Mucus 2+ /HPF - Radiology Data Radiology results: report reviewed Pelvic Ultrasound HISTORY: suprapubic, right lower quadrant pain, hx of cysts. TECHNIQUE: Grayscale and color imaging performed. COMPARISON: Pelvic ultrasound from 04/23/2019 FINDINGS: Uterus measures 8.4 x 4.1 x 5.1 cm with endometrial complex measuring 6 mm. There is a small mass in the left paracentral uterine body measuring 1.5 cm likely representing a fibroid. Th ere is also a tiny cystic structure measuring 6 mm in the right uterine body. Small bilateral ovarian cysts are present with otherwise unremarkable appearance of the ovaries. Right-sided cysts have a mildly complex appearance and measure 1.6 cm in maximal dimension. The left-sided ovarian cysts have a simple or appearance. Trace pelvic free fluid is present. IMPRESSION: 1. Bilateral ovarian cysts, slightly more complex on the right but likely functional. No obvious solid soft tissue component. 2. Small uterine fibroid. 3. Trace simple pelvic free fluid. Signer Name: Hernesto Valderrama MD Signed: 10/28/2019 3:22 PM Workstation Name: [id number] Transcribed By: JANEEN Dictated By: Hernesto Valderrama MD Electronically Authenticated By: Hernesto Valderrama MD Signed Date/Time: 10/28/19 1522 DD/ 1520 TD/TT: - Medical Decision Making Patient is a 39-year-old female presents emergency room with complaints of lower abdominal pain that began today. She states that she was at work pushing a v anity and felt like she pulled a muscle and then began having pain in her lower abdomen and lower back. She states the pain feels like a pressure. She denies any fever, rectal pain, nausea, vomiting, diarrhea, melena, hematochezia. She does not report any vaginal discharge or irritation. She states that she has a past medical history of a ruptured ovarian cyst and she states that the pain feels similar to when she had the cyst previously. She denies any allergies to medications. She states her last menstrual cycle was September. Vitals are stable. Labs are stable, very mild hypokalemia at 3.4, discussed increasing oral intake with patient. hCG quant is negative. UA without evidence of UTI. pelvic US: 1. Bilateral ovarian cysts, slightly more complex on the right but likely functional. No obvious solid soft tissue component. 2. Small uterine fibroid. 3. Trace simple pelvic free fluid. Offered patient pain medication and she politely declined she states that she is not having pain currently. Discussed all results with patient. Patient will be referred to an AUDIO VISUAL ENGINEER regarding ul trasound findings. Discussed strict return precautions in detail with patient. Patient given prescription for naproxen to take as needed. advised pt please take medication as prescribed as needed. Please follow-up with an AUDIO VISUAL ENGINEER for further evaluation. Please return to the emergency room immediately for any worsening abdominal pain, fevers, vomiting, unable to eat, etc. Critical care attestation.: If time is entered above; I have spent that time in minutes in the direct care of this critically ill patient, excluding procedure time. ED Disposition Clinical Impression: Bilateral ovarian cysts Uterine fibroid Qualifiers: Uterine leiomyoma location: unspecified location Qualified Code(s): D25.9 - Leiomyoma of uterus, unspecified Disposition: DC- TO HOME OR SELFCARE Is pt being admited?: No Does the pt Need Aspirin: No Condition: Stable Instructions: Ovarian Cyst (ED), Uterine Fibroids (ED), Abdominal Pain (ED) Additional Instructions: Please take medication as prescribed as needed. Please follow-up with an AUDIO VISUAL ENGINEER for further evaluation. Please return to the emergency room immediately for any worsening abdominal pain, fevers, vomiting, unable to eat, etc. Prescriptions: Naproxen [Naprosyn TAB] 500 mg PO BID PRN #14 tablet PRN Reason: pain Referrals: [facility] [Provider Group] - 2-3 Days [facility] [Provider Group] - 2-3 Days [facility] [Provider Group] - 2-3 Days Time of Disposition: 15:33 Print Language: [id number]
== END 2019-10-28 15:49 | disposition home or self-care (01) ==
LOC: ED 13:01
DX: N83.202 Unspecified ovarian cyst, left side (principal); N83.201 Unspecified ovarian cyst, right side; D25.9 Leiomyoma of uterus, unspecified; Z79.899 Other long term (current) drug therapy; Z98.51 Tubal ligation status
CPT/HCPCS: 36415; 76856; 80053; 81001; 84702; 85025